=== PATIENT | female | born 1990 | race Caucasian/White ===

== ENCOUNTER 2020-10-25 17:33 | Emergency (ER) | payer OTHER ==
[~2020-10-25] VITALS: Ht 147.3 cm; Wt 108.9 kg
[2020-10-25 17:42] VITALS: BP 121/62
[2020-10-25] MEDS ORDERED: OXYC-128 PO (17:46)
[2020-10-25] MEDS ORDERED: IBUP-1955 PO (17:46)
[2020-10-25] MEDS ORDERED: oxyCODONE/APAP (5/325 MG) 1 UDTAB TABLET ONE (17:59)
[2020-10-25] MEDS ORDERED: oxyCODONE/APAP (5/325 MG) 1 UDTAB TABLET PO ONE (18:00)
--- NOTE | 2020-10-25 18:01 | NUR ---
Patient discharged to home in stable condition. Written and verbal after care instructions given. Patient verbalizes understanding of instruction. Pt ambulatory with a steady gait
== END 2020-10-25 18:02 | disposition home or self-care (01) ==
LOC: ER 17:38
DX: K04.7 Periapical abscess without sinus (principal); K08.89 Other specified disorders of teeth and supporting structures

== ENCOUNTER 2021-03-03 06:53 | Emergency (ER) | payer OTHER ==
[~2021-03-03] VITALS: Ht 149.9 cm; Wt 124.7 kg
[~2021-03-03 06:53] MED LIST: IBUP-1955 PO; OXYC-128 PO
[2021-03-03 07:11] VITALS: BP 148/96
[2021-03-03] MEDS ORDERED: ONDA4TAB5 PO (07:27)
[2021-03-03] MEDS ORDERED: CEPH500C2 PO (07:27)
[2021-03-03] MEDS ORDERED: ONDANSETRON HCL 4 MG/5 ML SOLUTION PO ONE (07:30)
[2021-03-03] MEDS ORDERED: HYDROCODONE/APAP 5/325MG TABLET PO ONE (07:30)
[2021-03-03] MEDS ORDERED: HYDROCODONE/APAP 5/325MG TABLET ONE (07:31)
[2021-03-03] MEDS ORDERED: ONDANSETRON 4 MG TAB.RAPDIS ONE (07:34)
== END 2021-03-03 07:39 | disposition home or self-care (01) ==
LOC: ER 06:53
DX: K08.89 Other specified disorders of teeth and supporting structures (principal); F12.90 Cannabis use, unspecified, uncomplicated; Z79.899 Other long term (current) drug therapy
CPT/HCPCS: 99283; Q0162